=== PATIENT | male | born 1965 | race Native Hawaiian/Other Pacific Islander ===

== ENCOUNTER 2017-10-17 11:15 | Emergency (ER) | payer BC, OTHER ==
[2017-10-17 11:19] VITALS: BMI 28.5
--- NOTE | 2017-10-17 11:26 | C.PDOC ---
History Of Present Illness 52 year old male with a history of hypertension and coronary artery disease ( stent places) is brought to the emergency department by EMS with complaints of dizziness, a headache described as pressure on the back of his head. Patient reports a tingling sensation around around his mouth. Patient denies chest pain , shortness of breath, or numbness in his extremities. Time Seen by Provider: 10/17/17 11:26 Chief Complaint (Nursing): Weakness/Neurological Deficit History Per: Patient History/Exam Limitations: no limitations Onset/Duration Of Symptoms: Days Current Symptoms Are (Timing): Still Present Associated Symptoms Preceding Syncopal Episode: No Predromal Symptoms (Sudden Onset) Past Medical History Reviewed: Historical Data, Nursing Documentation, Vital Signs Vital Signs: Last Vital Signs Temp 99.2 F 10/17/17 16:01 Pulse 102 H 10/17/17 16:01 Resp 19 10/17/17 16:01 BP 111/62 10/17/17 16:01 Pulse Ox 96 10/17/17 16:01 - Medical History PMH: CAD, HTN Denies: Chronic Kidney Disease Surgical History: Appendectomy, Coronary Stent (2000) - [facility] Procedures OTHER LOCAL DESTRUC SKIN (07/27/13) Family History: States: No Known Family Hx Review Of Systems Except As Marked, All Systems Reviewed And Found Negative. Neurological: Positive for: Headache (pressure on the back of his head) Physical Exam - Physical Exam Appears: Non-toxic, No Acute Distress Skin: Warm, Dry Head: Atraumatic, Normacephalic Eye(s): bilateral: Normal Inspection Nose: Normal Neck: Normal, Supple Chest: Symmetrical Cardiovascular: Rhythm Regular Respiratory: Normal Breath Sounds, No Rales, No Wheezing Extremity: Normal ROM, No Tenderness, No Swelling, Other (normal motor function in all extremities) Neurological/Psych: Oriented x3, Normal Speech, Normal Cognition, Normal Cranial Nerves, Normal Motor (5/5), Normal Sensation, Normal Reflexes, No Other (pronator drift) ED Course And Treatment - Laboratory Results Result Diagrams: 10/17/17 11:57 10/17/17 11:57 Medical Decision Making Medical Decision Making: Impression: Hypertensive urgency with dizziness and headache. R/O bleed. Plan: CT Head EKG CK-MB Stat CMP Troponin CBC PTT Prothrombin TIme CXR One View Tylenol 650mg PO Disposition - Disposition Disposition: HOME/ ROUTINE Disposition Time: 16:44 Condition: GOOD Instructions: Dizziness, Nonvertigo, (DC), Tension Headache (DC) Forms: [facility] (Y[place]i) - Clinical Impression Clinical Impression: Dizziness, Tension headache - Scribe Statement The provider has reviewed the documentation as recorded by the Scribe (Bryan Shin) Provider Attestation: All medical record entries made by the Scribe were at my direction and personally dictated by me. I have reviewed the chart and agree that the record accurately reflects my personal performance of the history, physical exam, medical decision making, and the department course for this patient. I have also personally directed, reviewed, and agree with the discharge instructions and disposition.
--- NOTE | 2017-10-17 11:56 | CT ---
PROCEDURE: CT HEAD WITHOUT CONTRAST. HISTORY: R/O Bleed COMPARISON: None available. TECHNIQUE: Axial computed tomography images were obtained through the head/brain without intravenous contrast. Radiation dose: Total exam DLP = 1308.40 mGy-cm. This CT exam was performed using one or more of the following dose reduction techniques: Automated exposure control, adjustment of the mA and/or kV according to patient size, and/or use of iterative reconstruction technique. FINDINGS: HEMORRHAGE: No intracranial hemorrhage. BRAIN: Mulligan-white matter differentiation is preserved. There is no mass, mass effect or abnormal extra-axial fluid collection. There is no territorial infarction. VENTRICLES: There is mild age-related global parenchymal volume loss and proportionate enlargement of the ventricles and cortical sulci. CALVARIUM: The skull base and calvarium are normal. PARANASAL SINUSES: Predominantly clear. MASTOID AIR CELLS: Predominantly clear. OTHER FINDINGS: None. IMPRESSION: No acute intracranial abnormality.
[2017-10-17 12:05] LABS: BASO # 0.1 K/uL (0.0-0.2); BASO % 0.8 % (0.0-2.0); EOS # 0.3 K/uL (0.0-0.7); EOS % 5.1 % (0.0-4.0); HEMOGLOBIN 14.6 g/dL (12.0-18.0); LYMPH # 3.1 K/uL (1.0-4.3); LYMPH % 46.9 % (20.0-40.0); MEAN CELL VOLUME 87.4 fL (80.0-94.0); MEAN CORPUSCULAR HEMOGLOBIN 29.9 pg (27.0-31.0); MEAN CORPUSCULAR HGB CONC 34.2 g/dL (33.0-37.0); MEAN PLATELET VOLUME 8.6 fL (7.2-11.7); MONO # 0.4 K/uL (0.0-0.8); MONO % 6.3 % (0.0-10.0); NEUT # 2.7 K/uL (1.8-7.0); NEUT % 40.9 % (50.0-75.0); NRBC % 0.1 % (0.0-2.0); RBC 4.88 Mil/uL (4.40-5.90); RED CELL DISTRIBUTION WIDTH 12.5 % (11.5-14.5); WHITE BLOOD COUNT 6.7 K/uL (4.8-10.8)
[2017-10-17 12:12] LABS: ALB/GLOB RATIO 1.5 (1.0-2.1); ALBUMIN 4.7 g/dL (3.5-5.0); ALT/SGPT 101 U/L (21-72); AST/SGOT 93 U/L (17-59); BLOOD UREA NITROGEN 11 mg/dL (9-20); CALCIUM 9.8 mg/dl (8.6-10.4); GFR AFRICAN-AMERICAN > 60; GFR NON-AFRICAN AMERICAN > 60
[2017-10-17 12:16] LABS: PROTHROMBIN TIME 10.7 SECONDS (9.7-12.2)
[2017-10-17 12:23] LABS: CK-MB 0.58 ng/mL (0.0-3.38)
--- NOTE | 2017-10-17 13:07 | RAD ---
PROCEDURE: CHEST RADIOGRAPH, 1 VIEW HISTORY: SOB COMPARISON: None available. FINDINGS: LUNGS: The lungs are well inflated and clear. PLEURA: No pneumothorax or pleural fluid seen. CARDIOVASCULAR: Normal. OSSEOUS STRUCTURES: No significant abnormalities. VISUALIZED UPPER ABDOMEN: Normal. OTHER FINDINGS: None. IMPRESSION: No active pulmonary disease.
[2017-10-17] MEDS ORDERED: Sodium Chloride 0.9% 1,000 ML IV ONE (13:25)
[2017-10-17] MEDS ORDERED: Sodium Chloride 0.9% 1,000 ML ONE (13:48)
[2017-10-17] MEDS ORDERED: Metoprolol Succinate 25 mg XL Tab PO ONE (15:48)
[2017-10-17 16:02] VITALS: O2SAT 96
[2017-10-17 17:10] VITALS: BP 105/69; PULSE 94; RESP 17; TEMP 98.5
--- NOTE | 2017-10-19 12:21 | CARD ---
APPROVED REPORT EKG Measurement Heart [id number] <Conclusion> Sinus tachycardia Possible Left atrial enlargement Borderline ECG
== END 2017-10-17 17:10 | disposition home or self-care (01) ==
LOC: C.ER 11:15
DX: G44.209 Tension-type headache, unspecified, not intractable (principal); R42 Dizziness and giddiness; I25.10 Atherosclerotic heart disease of native coronary artery without angina pectoris; I10 Essential (primary) hypertension; Z87.891 Personal history of nicotine dependence
CPT/HCPCS: 70450; 71045; 80053; 82553; 82948; 84484; 85025; 85610; 85730; 93005; 99285; J7030